=== PATIENT | female | born 1995 | race Two or more races ===

== ENCOUNTER 2023-07-11 20:43 | Emergency (ER) | payer OTHER ==
[~2023-07-11] VITALS: Ht 170.2 cm; Wt 67.1 kg
[2023-07-11 21:15] VITALS: TEMP 98.4
[2023-07-12 00:27] LABS: PREGNANCY TEST URINE QUAL NEGATIVE (NEGATIVE)
[2023-07-12 02:41] VITALS: BP 111/74; O2SAT 97
== END 2023-07-12 02:42 | disposition home or self-care (01) ==
LOC: ER 20:45
DX: F10.129 Alcohol abuse with intoxication, unspecified (principal); E11.9 Type 2 diabetes mellitus without complications; Y90.9 Presence of alcohol in blood, level not specified
CPT/HCPCS: 70450-TC; 82962-TC; 84703-TC